=== PATIENT | female | born 1985 | race Asian ===

== ENCOUNTER 2018-09-18 18:39 | Inpatient (IN) | payer MEDICAID, SELFPAY ==
[~2018-09-18 18:39] MED LIST: Bupivacaine 0.25% HCL 30 ML VIAL ONE
[2018-09-18 19:08] VITALS: BMI 26.9
--- NOTE | 2018-09-18 19:21 | PDOC.LDHP ---
Labor and Delivery H&P Chief complaint: contractions, loss of fluid ( @ 1100 today) HPI: iqra hp wtih uncomplicated . prior x 2 Current gestational age (weeks): 38 Due date: 09/28/18 Grav: 3 Para: 2 Current complications: none Abnormal US findings: No Current medications: none Previous surgical history: none Allergies/Adverse Reactions: Allergies Allergy/AdvReac Type Severity Reaction Status Date / Time No Known Allergies Allergy Unverified 09/18/18 19:01 Social history: none - Physical Exam Vital signs reviewed and normal: yes General: NAD, resting Heart: RRR Lungs: CTAB Abdomen: NTTP Extremeties: no edema FHT: category 1 Miller contractions every: irregular - Vaginal Exam cm dilated: 4 Effacement: 75% Station: -1 - OB Labs Blood type: B RH: positive Antibody Screen: negative HIV: negative RPR: negative HEPSAg: negative GBS: negative Rubella: immune - Assessment L&D Assessment: term patient in labor - Plan Plan: admit to L&D, labor augmentation if indicated, anesthesia consult for pain management
[2018-09-18] MEDS: Lactated Ringer's 1,000 ML IV SCH ×2 (19:39→22:50)
[2018-09-18] MEDS ORDERED: Ondansetron PF 4 MG/2 ML Vial IVP PRN ×2 (19:43→23:26)
[2018-09-18] MEDS ORDERED: Acetaminophen/Codeine 30-300mg Tablet PO PRN ×2 (19:43)
[2018-09-18] MEDS ORDERED: Ibuprofen 800 MG TAB PO PRN (19:43)
[2018-09-18] MEDS ORDERED: Promethazine HCl 25 MG/ML VIAL IM PRN ×2 (19:43→23:26)
[2018-09-18] MEDS ORDERED: NS w/ Oxytocin 10 units 500 ML IV SCH (19:43)
[2018-09-18] MEDS ORDERED: Lidocaine 1% (PF) 30 ML VIAL SC PRN (19:43)
[2018-09-18] MEDS ORDERED: Lactated Ringer's 1,000 ML IV SCH (19:43)
[2018-09-18] MEDS ORDERED: Butorphanol Tartrate 1 MG/ML VIAL SLOW IVP PRN (19:43)
[2018-09-18 19:58] LABS: Hemoglobin 12.8 g/dL (12.0-16.0); Mean Corpuscular HGB CONC 35.3 g/dL (32.0-36.0); Mean Corpuscular Hemoglobin 31.6 pg (27.0-31.0); Mean Corpuscular Volume 89.6 fL (78.0-98.0); Mean Platelet Volume 8.6 fL (7.4-10.4); Platelet Count 183 thou/uL (130-400); RBC Distribution Width 11.9 % (11.5-14.5); Red Blood Cell (RBC) Count 4.06 mill/uL (4.20-5.40); White Blood Cell (WBC) Count 5.9 thou/uL (4.8-10.8)
[2018-09-18 20:44] LABS: Syphilis Antibody Nonreactive (Nonreactive); Syphilis Antibody Index 0.04 S/CO (<1.00 Non-Reactive)
[2018-09-18] MEDS ORDERED: Fentanyl 4 mcg/Bup 0.1% Cadd 100 ML ONE (22:26)
[2018-09-18 23:08] LABS: HBSAg Index 0.23 S/CO (0-0.99); Hep B Surf Ag Non-Reactive S/CO (NonReactive)
[2018-09-18] MEDS ORDERED: Eucerin (Mineral Oil/Petrolatum,White) 30 gm Jar TOP PRN (23:26)
[2018-09-18] MEDS ORDERED: Lactated Ringer's 500 ML IV PRN (23:26)
[2018-09-18] MEDS ORDERED: Naloxone HCl 0.4 mg/ml Vial IVP PRN ×2 (23:26)
[2018-09-18] MEDS ORDERED: ePHEDrine/0.9% NaCl/PF SYRINGE 50 mg/10 ml SLOW IVP PRN (23:26)
[2018-09-18] MEDS ORDERED: Acetaminophen 325 MG TAB PO PRN (23:26)
[2018-09-18] MEDS ORDERED: diphenhydrAMINE 50 MG/ML VIAL IVP PRN (23:26)
[2018-09-18] MEDS ORDERED: Communication Order-Pharmacy FS SCH (23:30)
[2018-09-18] MEDS ORDERED: Fentanyl 4 mcg/Bupivacaine 0.1% Cassette 100 ML EPIDURAL SCH (23:30)
[2018-09-19] MEDS: NS / Oxytocin 40 units/1000ml 1,000 ML IV PRN ×2 (01:15→02:55)
--- NOTE | 2018-09-19 01:22 | PDOC.OPDEL ---
OB Operative/Delivery Note Delivery Dr/Surgeon: Kingsley Rahman Pre-Delivery Diagnosis: active labor Procedure/Post Delivery Dx: spontaneous vaginal delivery Weeks gestation: 38 Anesthesia: epidural - Findings A Sex: female - 1 min: 9 - 5 min: 9 - Additional Findings/Plan Placenta delivered: spontaneous Repaired Obstetrical Laceration: 2nd degree Estimated blood loss: 500- Post delivery plan: routine recovery
[2018-09-19] MEDS ORDERED: Adacel (T-DAP) 0.5 ML SYRINGE IM ONE (02:55)
[2018-09-19] MEDS ORDERED: Ondansetron PF 4 MG/2 ML Vial IVP PRN (02:55)
[2018-09-19] MEDS ORDERED: diphenhydrAMINE 25 MG CAP PO PRN (02:55)
[2018-09-19] MEDS ORDERED: Bisacodyl 10 MG SUPP PR PRN (02:55)
[2018-09-19] MEDS ORDERED: Acetaminophen/Codeine 30-300mg Tablet PO PRN ×2 (02:55)
[2018-09-19] MEDS ORDERED: Lanolin Ointment 7 GM TUBE TOP PRN (02:55)
[2018-09-19] MEDS ORDERED: Milk Of Magnesia 30 ML UDCUP PO PRN (02:55)
[2018-09-19] MEDS ORDERED: Zolpidem Tartrate 5 MG TAB PO PRN (02:55)
[2018-09-19] MEDS ORDERED: NS / Oxytocin 40 units/1000ml 1,000 ML IV SCH (02:55)
[2018-09-19] MEDS ORDERED: Preparation H Ointment 28 GM TUBE PR PRN (02:55)
[2018-09-19] MEDS ORDERED: Benzocaine/Menthol 20-0.5% 60 ML CAN TOP PRN (02:55)
[2018-09-19] MEDS: Ibuprofen 800 MG TAB PO SCH ×3 (05:56→22:24)
[2018-09-19] MEDS: Docusate Calcium (SURFAK) 240 MG CAP PO SCH ×2 (09:04→22:22)
[2018-09-19] MEDS: Prenatal Vitamin 1 TAB PO SCH (09:04)
[2018-09-19] MEDS: Lactated Ringer's 1,000 ML IV SCH ×2 (14:28→20:24)
[2018-09-20] MEDS: Lactated Ringer's 1,000 ML IV SCH ×2 (05:03→15:03)
[2018-09-20] MEDS: Ibuprofen 800 MG TAB PO SCH ×2 (05:18→15:02)
[2018-09-20 08:22] VITALS: BP 123/81; TEMP 97.7
[2018-09-20] MEDS: Docusate Calcium (SURFAK) 240 MG CAP PO SCH (08:48)
[2018-09-20] MEDS: Prenatal Vitamin 1 TAB PO SCH (08:48)
--- NOTE | 2018-09-20 12:33 | DIS ---
DATE OF ADMISSION: 09/18/2018 DATE OF DISCHARGE: 09/20/2018 ADMITTING DIAGNOSES: 1. Intrauterine at 38 weeks. 2. Labor. DISCHARGE DIAGNOSES: 1. Intrauterine at 38 weeks. 2. Labor. PROCEDURE PERFORMED: Term spontaneous vaginal delivery. HOSPITAL COURSE: The patient is a 33-year-old, G3, now P3 female, presenting to Labor and Delivery in labor at 38 weeks' gestation, who was admitted and resulting in an uncomplicated term spontaneous vaginal delivery. Today is day 1, the patient reports that she has expressed interest in discharge home. She has good pain control and is ambulating and tolerating p.o. and voiding on her own. PHYSICAL EXAMINATION: VITAL SIGNS: This morning; blood pressure 117/70, temperature 98, pulse is 77, and respiratory rate is 16. GENERAL: She appears to be in no acute distress. She is alert and oriented, cooperative, and pleasant to interact with. HEAD: Normocephalic and atraumatic. : Fundus is firm at the umbilicus. EXTREMITIES: Nontender and nonedematous. The patient will be discharged to home with instructions to follow up with her primary OB in 6 weeks or sooner, if she experiences fever, increasing pain, or bleeding. The patient will be discharged with ibuprofen. Job ID: [id number]
== END 2018-09-20 18:02 | disposition home or self-care (01) | DRG 807 ==
LOC: L&D/OP 18:39 → L&D 19:32 → 3SW 09-19 04:32
PROVIDERS: ADMIT Family Medicine; ATTEND Family Medicine
PROC: 10E0XZZ Delivery of Products of Conception, External Approach (ICD-10-PCS; principal; 2018-09-19)
PROC: 0KQM0ZZ Repair Perineum Muscle, Open Approach (ICD-10-PCS; 2018-09-19)
PROC: 4A1HXCZ Monitoring of Products of Conception, Cardiac Rate, External Approach (ICD-10-PCS; 2018-09-19)
PROC: 4A1HXFZ Monitoring of Products of Conception, Cardiac Rhythm, External Approach (ICD-10-PCS; 2018-09-19)
DX: O76 Abnormality in fetal heart rate and rhythm complicating labor and delivery (principal); Z37.0 Single live birth; O69.81X0 Labor and delivery complicated by cord around neck, without compression, not applicable or unspecified; Z3A.38 38 weeks gestation of pregnancy; O70.1 Second degree perineal laceration during delivery
CPT/HCPCS: 51702; 85027; 86780; 86850; 86900; 86901; 87340; 99285; S0020

== ENCOUNTER 2020-03-06 07:20 | Inpatient (IN) | payer MEDICAID, OTHER, SELFPAY ==
[2020-03-06] MEDS ORDERED: HYDROcodone/Acetaminophen 5/325 mg Tablet PO PRN ×3 (07:38→10:55)
[2020-03-06] MEDS ORDERED: hydrALAZINE 20 MG/ML VIAL SLOW IVP PRN ×2 (07:38→10:55)
[2020-03-06] MEDS ORDERED: Lidocaine 1% (PF) 30 ML VIAL SC PRN (07:38)
[2020-03-06] MEDS ORDERED: Ibuprofen 800 MG TAB PO PRN (07:38)
[2020-03-06] MEDS ORDERED: Promethazine HCl 25 MG/ML VIAL IM PRN ×2 (07:38→10:55)
[2020-03-06] MEDS ORDERED: NS / Oxytocin 40 units/1000ml 1,000 ML IV PRN (07:38)
[2020-03-06] MEDS ORDERED: Misoprostol 200 MCG TAB PR PRN (07:38)
[2020-03-06] MEDS ORDERED: Diphenoxylate HCl/Atropine Tablet PO PRN (07:38)
[2020-03-06] MEDS ORDERED: Butorphanol Tartrate 1 MG/ML VIAL SLOW IVP PRN (07:38)
[2020-03-06] MEDS ORDERED: Carboprost 250 MCG/ML AMP IM PRN (07:38)
[2020-03-06] MEDS ORDERED: Methylergonovine 0.2 MG/ML VIAL IM PRN (07:38)
[2020-03-06] MEDS ORDERED: Ondansetron PF 4 MG/2 ML Vial IVP PRN ×2 (07:38→10:55)
[2020-03-06] MEDS ORDERED: NS / Oxytocin 40 units/1000ml 1,000 ML ONE (07:43)
[2020-03-06] MEDS ORDERED: Lidocaine 1% (PF) 30 ML VIAL ONE (07:43)
[2020-03-06] MEDS ORDERED: Lactated Ringer's 1,000 ML IV SCH (07:45)
[2020-03-06 08:00] VITALS: BMI 23.4
[2020-03-06 08:06] LABS: Hemoglobin 12.7 g/dL (12.0-16.0); Mean Corpuscular HGB CONC 33.9 g/dL (32.0-36.0); Mean Corpuscular Hemoglobin 30.8 pg (27.0-31.0); Mean Corpuscular Volume 91.1 fL (78.0-98.0); Mean Platelet Volume 10.3 fL (7.4-10.4); Platelet Count 110 thou/uL (130-400); RBC Distribution Width 13.2 % (11.5-14.5); Red Blood Cell (RBC) Count 4.13 mill/uL (4.20-5.40); White Blood Cell (WBC) Count 4.8 thou/uL (4.8-10.8)
[2020-03-06 08:36] LABS: HBSAg Index 0.17 S/CO (0-0.99); Hep B Surf Ag Non-Reactive S/CO (NonReactive); Syphilis Antibody Nonreactive (Nonreactive); Syphilis Antibody Index 0.03 S/CO (<1.00 Non-Reactive)
[2020-03-06] MEDS ORDERED: Acetaminophen 325 MG TAB PO SCH (10:15)
[2020-03-06] MEDS ORDERED: Adacel (T-DAP) 0.5 ML SYRINGE IM ONE (10:55)
[2020-03-06] MEDS ORDERED: Bisacodyl 10 MG SUPP PR PRN (10:55)
[2020-03-06] MEDS ORDERED: diphenhydrAMINE 25 MG CAP PO PRN (10:55)
[2020-03-06] MEDS ORDERED: Milk Of Magnesia 30 ML UDCUP PO PRN (10:55)
[2020-03-06] MEDS ORDERED: NS / Oxytocin 40 units/1000ml 1,000 ML IV SCH (10:55)
[2020-03-06] MEDS ORDERED: Benzocaine-Menthol 82.5 ML CAN TOP PRN (10:55)
[2020-03-06] MEDS ORDERED: Lanolin Ointment 7 GM TUBE TOP PRN (10:55)
[2020-03-06] MEDS: Prenatal Vitamin 1 TAB PO SCH (13:04)
[2020-03-06] MEDS: Ferrous Sulfate 325 MG TAB PO SCH (17:16)
[2020-03-06] MEDS: Ibuprofen 800 MG TAB PO SCH (17:16)
[2020-03-06] MEDS ORDERED: cloNIDine 0.1 MG TAB PO PRN (18:01)
[2020-03-06] MEDS ORDERED: Acetaminophen 325 MG TAB PO PRN (21:37)
[2020-03-06] MEDS: Docusate Calcium (SURFAK) 240 MG CAP PO SCH (21:44)
[2020-03-07 08:16] VITALS: BP 125/85; TEMP 98.1
[2020-03-07] MEDS: Prenatal Vitamin 1 TAB PO SCH (09:44)
[2020-03-07] MEDS: Docusate Calcium (SURFAK) 240 MG CAP PO SCH (09:44)
[2020-03-07] MEDS: Ferrous Sulfate 325 MG TAB PO SCH ×2 (09:44→18:45)
[2020-03-07] MEDS: Ibuprofen 800 MG TAB PO SCH ×2 (14:56→14:57)
== END 2020-03-07 18:40 | disposition home or self-care (01) | DRG 807 ==
LOC: L&D/OP 07:20 → L&D 07:42 → 3SW 12:04
PROVIDERS: ADMIT Family Medicine; ATTEND Family Medicine
PROC: 10E0XZZ Delivery of Products of Conception, External Approach (ICD-10-PCS; principal; 2020-03-06)
PROC: 0KQM0ZZ Repair Perineum Muscle, Open Approach (ICD-10-PCS; 2020-03-06)
DX: O24.420 Gestational diabetes mellitus in childbirth, diet controlled (principal); Z37.0 Single live birth; O76 Abnormality in fetal heart rate and rhythm complicating labor and delivery; O70.1 Second degree perineal laceration during delivery; Z3A.38 38 weeks gestation of pregnancy
CPT/HCPCS: 85027; 86780; 86850; 86900; 86901; 87340; 99285; J0360; J2001